=== PATIENT | female | born 1945 | race Caucasian/White ===

== ENCOUNTER 2017-10-16 05:15 | Day surgery (SDC) | payer OTHER ==
[~2017-10-16 05:15] MED LIST: ALENDRONATE SOD70 MG PO; ASA81 MG PO; DIOVAN160 M1 PO; FENOGLIDE40 MG PO; LATANOPROST2.5 ML OP; LEVO-T50 MCG PO; NORVASC5 MG PO; OMEPRAZOLE20 M1 PO; SIMVASTATIN10 MG PO; TOPROL XL50 M1 PO
[2017-10-16] MEDS ORDERED: ULTRACET PO (10:47)
[2017-10-16] MEDS ORDERED: MACROBID 100 M100 MG PO (10:48)
== END 2017-10-16 15:00 | disposition home or self-care (01) ==
LOC: CIR.AMB 05:15
DX: N81.11 Cystocele, midline (principal)

== ENCOUNTER 2023-08-14 05:26 | Day surgery (SDC) | payer OTHER ==
[~2023-08-14 05:26] MED LIST changes: +MACROBID 100 M100 MG PO; +METFORMIN HCL500 MG; +MICARDIS40 MG; +PEPCID AC20 MG; +ULTRACET PO
[2023-08-14] MEDS ORDERED: LIDOCAINE HCL/EPINEPHRINE 10MG/ML 1% 50ML IJ ONE (08:30)
[2023-08-14] MEDS ORDERED: CEFAZOLIN SODIUM 1,000 MG VIAL IV ONE (08:30)
[2023-08-14] MEDS ORDERED: CHLORHEXIDINE GLUCONATE 120 ML BOTTLE TOP ONE (08:30)
[2023-08-14] MEDS ORDERED: VANCOMYCIN HCL 1,000 MG VIAL IR ONE (08:30)
[2023-08-14] MEDS ORDERED: MACROBID 100 M100 MG PO (10:20)
== END 2023-08-14 12:50 | disposition home or self-care (01) ==
LOC: CIR.AMB 05:26
PROVIDERS: ATTEND Obstetrics & Gynecology Gynecology
DX: N81.11 Cystocele, midline (principal)